=== PATIENT | male | born 1960 | race Caucasian/White ===

== ENCOUNTER 2019-12-28 16:23 | Emergency (ER) | payer SELFPAY ==
[2019-12-28 16:27] VITALS: BP 177/97; PULSE 107; RESP 18; TEMP 36.8; O2SAT 99
--- NOTE | 2019-12-28 17:02 | ED.ALCOHOL ---
HPI - Alcohol General Chief Complaint: Alcohol <Jeffrey Vela PA-C - Last Filed: 12/28/19 19:56> Stated Complaint: INTOXICATION/SI <Jeffrey Vela PA-C - Last Filed: 12/28/19 19:56> Time Seen by Provider: 12/28/19 19:54 <Jeffrey Vela PA-C - Last Filed: 12/28/19 19:56> Source: patient and EMS <DENICE Marin Last Filed: 12/28/19 19:56> Mode of arrival: ambulatory <Jeffrey Vela PA-C - Last Filed: 12/28/19 19:56> Limitations: no limitations <Jeffrey Vela PA-C - Last Filed: 12/28/19 19:56> History of Present Illness HPI narrative: Patient is a 59-year-old male who presents to emergency department for evaluation of alcohol intoxication and having noted that he wants to hurt himself to EMS patient notes history of schizophrenia anxiety and depression and prior psych hospitalization noting that over the last month he has quit taking his medications and has been drinking alcohol patient presents noting some mild discomfort of the abdomen with nausea. Patient notes he has had some emesis also notes he has had some falls injuring the bilateral knees patient with longstanding history of alcohol abuse notes that he had had 2 years of cessation. Patient notes having been laid off from his job is caused him to be depressed and has increased his drinking. Patient notes that he is drinking 1/5 with beer daily. <Jeffrey Vela PA-C - Last Filed: 12/28/19 19:56> Related Data Allergies/Adverse Reactions: Allergies Allergy/AdvReac Type Severity Reaction Status Date / Time codeine Allergy Mild Nausea and Verified 10/04/15 18:36 Vomiting Penicillins Allergy Mild RASH Verified 11/05/09 10:15 <Jeffrey Vela PA-C - Last Filed: 12/28/19 19:56> Review of Systems Review of Systems: All systems reviewed & are unremarkable except as noted in HPI and below <Jeffrey Vela PA-C - Last Filed: 12/28/19 19:56> PMFSH Past Medical History Medical History: Medical History Anxiety Depression Schizophrenia <Jeffrey Vela PA-C - Last Filed: 12/28/19 19:56> Social History Social History: Social History Smoking status: Current every day smoker Alcohol intake: current <Jeffrey Vela PA-C - Last Filed: 12/28/19 19:56> Exam Narrative: Exam Narrative: GENERAL: Well-appearing, well-nourished, and in no acute distress. HEAD: Normocephalic, atraumatic. EYES: PERRLA and EOMI. ENT: Nares clear, no rhinorrhea or epistaxis. Mucous membranes moist. Oropharynx without tonsillar hypertrophy exudate or other lesions. Bilateral TMs pearly olson nonbulging NECK: Supple. No adenopathy or masses. CHEST: Clear to auscultation. No respiratory distress. No wheezes rales or rhonchi HEART: Regular rate and rhythm. No murmur heard. Normal peripheral pulses. ABDOMEN: Soft, tenderness of the abdomen that is generalized, nondistended, normal active bowel sounds. EXTREMITIES: Normal range of motion. No edema. SKIN: Warm, dry, no rash. NEURO: No focal deficits. Alert and oriented x3. PSYCH: Normal mood and affect. Patient acutely intoxicated. Patient denies any suicidal or homicidal ideation <Jeffrey Vela PA-C - Last Filed: 12/28/19 19:56> Course Course Emergency Course: Patient in the room at this time in no distress aware of case findings treatment plan and diagnosis resting comfortably in the room afebrile nontoxic-appearing patient still denying any homicidal or suicidal ideation. Patient is ANO x4. Patient notes that he would like to go home and has no complaints <Jeffrey Vela PA-C - Last Filed: 12/28/19 19:56> Reevaluation(s) Reevaluation #1: I passed some room several times and he has been sleeping soundly. His alcohol should be under 80 x 3 a.m., at which time we could discharge him. <Carine Isaac MD - Last Filed: 0
[2019-12-28] MEDS: ONDANSETRON INJ 4 MG/2 ML VIAL IV PUSH (17:10)
[2019-12-28] MEDS: PANTOPRAZOLE SODIUM IV 40 MG VIAL IV PUSH (17:11)
[2019-12-28] MEDS: LORAZEPAM INJ 2 MG/ML VIAL 1 MG IV PUSH (17:11)
[2019-12-28 17:15] LABS: Basophils Percent Auto 0.2 % (0.2-1.2); Eosinophils Absolute Auto 0.1 K/mm3 (0-0.3); Eosinophils Percent Auto 0.7 % (0-4.4); Hematocrit 44.5 % (42.0-52.0); Hemoglobin 15.7 g/dL (14.0-18.0); Immature Granulocyte Absolute 0.02 K/mm3 (0.00-0.031); Immature Granulocyte Percent A 0.2 % (0-0.5); Lymphocytes Absolute Auto 3.31 K/mm3 (0.9-3.2); Lymphocytes Percent Auto 38.7 % (18.3-44.2); Mean Corpuscular HGB Conc 35.3 g/dl (32-36); Mean Corpuscular Hemoglobin 30.5 pg (26-34); Mean Corpuscular Volume 86.4 fl (80-100); Monocytes Absolute Auto 0.8 K/mm3 (0.1-0.6); Monocytes Percent Auto 8.9 % (2.6-8.5); Neutrophils Absolute Auto 4.4 K/mm3 (1.3-6.7); Neutrophils Percent Auto 51.3 % (45.5-73.1); Platelet Count Result 258 k/mm3 (150-375); Red Blood Count 5.15 M/mm3 (4.6-6.20); Red Cell Distribution Width 13.4 % (11.5-14.5); White Blood Count 8.6 K/mm3 (4.5-10.0)
[2019-12-28] MEDS: THIAMINE HCL 200 MG/2 ML VIAL (17:15)
[2019-12-28 17:27] LABS: Alanine Aminotransferase 26 U/L (4-50); Albumin Level 4.4 g/dL (3.5-5.1); Alkaline Phosphatase 132 U/L (38-126); Aspartate Amino Transferase 53 U/L (17-59); Bilirubin,Total 0.4 mg/dL (0.2-1.3); Blood Urea Nitrogen 5 mg/dL (9-20); Calcium 8.5 mg/dL (8.4-10.2); Carbon Dioxide 24 mmol/L (22-30); Chloride 99 mmol/L (98-107); Estimated CRCL calculation 122 ml/min; Estimated Glomerular Filt Rate > 60; Glucose 101 mg/dL (75-110); Lipase 58 U/L (23-300); Potassium 3.9 mmol/L (3.4-5.0); Sodium 136 mmol/L (137-145)
[2019-12-28 17:29] LABS: Ethanol 287 mg/dL (<10)
[2019-12-28 18:43] LABS: Add Urine Microscopic? NO; Appearance Urine Clear (Clear); Bilirubin Urine Negative (Negative); Blood Urine Negative (Negative); Color Urine Yellow (Yellow); Glucose Urine UA Negative (Negative); Ketones Urine Negative (Negative); Leukocyte Esterase Ur Negative LEU/UL (Negative); Nitrate Urine Negative (Negative); Protein Urine Negative (Negative); Specific Grav Ur 1.009 (1.001-1.035); Urobilinogen Urine Negative mg/dL (<2.0)
[2019-12-28 20:16] LABS: Amphetamine Screen Urine Negative (Negative); Barbiturate Screen Urine Negative (Negative); Benzodiazepines Screen Urine Positive (Negative); Cannabinoid Screen Urine Negative (Negative); Cocaine Screen Urine Negative (Negative); Methadone Screen Urine Negative (Negative); Opiate Screen Urine Negative (Negative); Phencyclidine Screen Urine Negative (Negative)
[2019-12-28 20:18] VITALS: BP 101/92; PULSE 102; RESP 18; O2SAT 95
[2019-12-28 21:27] LABS: Ethanol 195 mg/dL (<10)
[2019-12-28 22:39] VITALS: BP 132/78; PULSE 78; RESP 18; O2SAT 99
[2019-12-29 02:02] VITALS: BP 136/87; PULSE 111; RESP 15; O2SAT 94
[2019-12-29] MEDS: ONDANSETRON INJ 4 MG/2 ML VIAL (02:15)
[2019-12-29] MEDS: METOCLOPRAMIDE HCL INJ 10 MG/2 ML VIAL (03:18)
[2019-12-29 03:20] VITALS: BP 146/76; PULSE 110; RESP 15; TEMP 36.9; O2SAT 95
[2019-12-29 03:28] LABS: Ethanol 12 mg/dL (<10)
[2019-12-29 04:20] VITALS: BP 138/84; PULSE 117; RESP 20; O2SAT 97
== END 2019-12-29 04:20 | disposition home or self-care (01) ==
PROVIDERS: Emergency Medicine Emergency Medical Services; Emergency Provider Emergency Medicine
DX: F10.120 Alcohol abuse with intoxication, uncomplicated (principal); F41.9 Anxiety disorder, unspecified; F20.9 Schizophrenia, unspecified; F32.9 Major depressive disorder, single episode, unspecified; Y90.8 Blood alcohol level of 240 mg/100 ml or more
CPT/HCPCS: 36415; 80053; 80307; 81003; 83690; 84443; 85025; 96365; 96366; 96375; 96376; 99284; C9113; J2060; J2405; J2765; J3411; J3475; J7121